=== PATIENT | male | born 1970 | race Hispanic/Latino ===

== ENCOUNTER 2022-11-09 17:04 | Emergency (ER) | payer BC ==
[2022-11-09] MEDS ORDERED: Dexamethasone 4 mg/ml Vial ONE (17:49)
[2022-11-09] MEDS ORDERED: Albuterol 2.5 MG/0.5 ML NEB ONE (17:50)
[2022-11-09] MEDS ORDERED: Ipratropium/Albuterol 3 ML NEB ONE (17:50)
[2022-11-09] MEDS ORDERED: guaiFENesin/Codeine Phosphate 100 mg/10 mg 5 ml UD Cup ONE (20:01)
== END 2022-11-09 20:05 | disposition home or self-care (01) ==
LOC: CSHERS 17:04
DX: J45.901 Unspecified asthma with (acute) exacerbation (principal); E11.9 Type 2 diabetes mellitus without complications; I10 Essential (primary) hypertension
CPT/HCPCS: 71045; 96372; J1100; J7611; J7620